=== PATIENT | female | born 1985 | race Two or more races ===

== ENCOUNTER 2022-06-04 20:53 | Emergency (ER) | payer MEDICAID, OTHER ==
[~2022-06-04] VITALS: Ht 157.5 cm; Wt 88.0 kg
[2022-06-04 21:52] VITALS: BP 130/79
== END 2022-06-05 03:11 | disposition left against medical advice (07) ==
LOC: ER 20:58
DX: S60.452A Superficial foreign body of right middle finger, initial encounter (principal); Z53.21 Procedure and treatment not carried out due to patient leaving prior to being seen by health care provider; W45.8XXA Other foreign body or object entering through skin, initial encounter; Y93.89 Activity, other specified; Y92.89 Other specified places as the place of occurrence of the external cause; Y99.8 Other external cause status